=== PATIENT | female | born 1940 | race Caucasian/White ===

== ENCOUNTER 2024-09-15 18:15 | Inpatient (IN) | payer MEDICARE, BC ==
[~2024-09-15] VITALS: Ht 157.5 cm; Wt 68.0 kg
[2024-09-15 18:49] LABS: PLATELET COUNT (AUTO) 446 K/uL (179-408); RED BLOOD CELL COUNT(AUTO) 4.57 MIL/uL (3.63-4.92); RED CELL DISTRIBUTION WIDTH 14.5 % (12.3-17.7); WHITE BLOOD COUNT (AUTO) 9.0 K/uL (3.8-11.8)
[2024-09-15] MEDS ORDERED: CEFTRIAXONE /D5W 50ML IVPB **ER PYXIS IV ONE (18:49)
[2024-09-15] MEDS: IV NORMAL SALINE 1000 ML BAG IV ONE (18:50)
[2024-09-15] MEDS: CEFTRIAXONE 1 G in IV DEXTROSE 5% 50 ML IV ONE (18:50)
[2024-09-15 19:14] LABS: ASPARTATE AMINOTRANSFERASE 50 U/L (15-37); CREATININE 1.0 mg/dL (0.6-1.3); NT-PRO BNP 469 pg/mL (0-125); SODIUM SERUM 137 mmol/L (136-145); TOTAL PROTEIN, SERUM 6.8 g/dL (6.4-8.2); UREA NITROGEN, BLOOD 20 mg/dL (7-18)
[2024-09-15] MEDS ORDERED: VANCOMYCIN IV 200 ML ONE (19:32)
[2024-09-15] MEDS: VANCOMYCIN IV 1,000 MG in IV DEXTROSE 5% 250 ML IV ONE (19:42)
[2024-09-15] MEDS: POTASSIUM CHLORIDE 50 ML IV SCH (19:55)
[2024-09-15] MEDS: POTASSIUM CHLORIDE 20 MEQ TAB.PRT.SR PO ONE (19:55)
[2024-09-15 20:44] LABS: *BILIRUBIN,URIN NEGATIVE (NEGATIVE); *CLARITY,URINE CLEAR (CLEAR); *COLOR,URINE YELLOW (YELLOW); *KETONES,URINE NEGATIVE (NEGATIVE); *PROTEIN,URINE NEGATIVE (NEGATIVE); *UROBILINOGEN,URINE 0.2 E.U./dl (NORMAL); LEUKOCYTE ESTERASE ,URINE TRACE (NEGATIVE); NITRITE, URINE NEGATIVE (NEGATIVE); UGLUCOSE NEGATIVE (NEGATIVE)
[2024-09-15 20:45] LABS: *BLOOD, URINE TRACE (NEGATIVE)
[2024-09-15 21:05] LABS: SQUAMOUS EPITHELIAL CELL,UR FEW /HPF (NONE SEEN)
[2024-09-15] MEDS ORDERED: LEVO300T2 PO (21:54)
[2024-09-15] MEDS ORDERED: ESCI10TA PO (21:54)
[2024-09-15] MEDS ORDERED: AMLO10TA59 PO (21:54)
[2024-09-15] MEDS ORDERED: ATOR20TA PO (21:54)
[2024-09-15] MEDS ORDERED: ONDANSETRON 4 MG/2 ML VIAL IV PRN (23:30)
[2024-09-15] MEDS ORDERED: ENALAPRILAT DIHYDRATE 1.25 MG/1 ML VIAL IV PRN (23:30)
[2024-09-15] MEDS ORDERED: TEMAZEPAM 15 MG CAPSULE PO PRN (23:30)
[2024-09-16 05:09] VITALS: BP 135/78; TEMP 98.2; O2SAT 95
[2024-09-16 07:22] LABS: PLATELET COUNT (AUTO) 371 K/uL (179-408); RED BLOOD CELL COUNT(AUTO) 4.12 MIL/uL (3.63-4.92); RED CELL DISTRIBUTION WIDTH 14.7 % (12.3-17.7); WHITE BLOOD COUNT (AUTO) 10.1 K/uL (3.8-11.8)
[2024-09-16 07:33] VITALS: BP 142/82; TEMP 97.5; O2SAT 97
[2024-09-16 08:07] LABS: ASPARTATE AMINOTRANSFERASE 39 U/L (15-37); CREATININE 0.8 mg/dL (0.6-1.3); SODIUM SERUM 138 mmol/L (136-145); TOTAL PROTEIN, SERUM 6.1 g/dL (6.4-8.2); UREA NITROGEN, BLOOD 15 mg/dL (7-18)
[2024-09-16] MEDS: PANTOPRAZOLE SODIUM 40 MG VIAL IV SCH (08:41)
[2024-09-16] MEDS: ESCITALOPRAM OXALATE 10 MG TABLET PO SCH (08:45)
[2024-09-16] MEDS: AMLODIPINE 10 MG TABLET PO SCH (08:45)
[2024-09-16] MEDS ORDERED: LEVOTHYROXINE SODIUM PO SCH (09:00)
[2024-09-16] MEDS ORDERED: TEMAZEPAM 7.5 MG CAPSULE PO PRN (11:00)
[2024-09-16] MEDS ORDERED: LEVO75TA7 PO (11:03)
[2024-09-16] MEDS: POTASSIUM CHLORIDE 20 MEQ TAB.PRT.SR PO ONE (11:11)
[2024-09-16] MEDS: MAGNESIUM OXIDE 400 MG TABLET PO ONE (11:12)
[2024-09-16] MEDS: POTASSIUM CHLORIDE 50 ML IV SCH (11:24)
[2024-09-16 11:40] VITALS: BP 142/87; TEMP 97.7; O2SAT 95
[2024-09-16 15:10] VITALS: BP 150/87; TEMP 97.4; O2SAT 95
[2024-09-16] MEDS: NEUTRA PHOS PACKET PO ONE (16:28)
[2024-09-16] MEDS: CEFTRIAXONE 1 G in IV DEXTROSE 5% 50 ML IV SCH (17:42)
[2024-09-16] MEDS: CALCIUM CARBONATE 500 MG TAB.CHEW PO PRN (18:30)
[2024-09-16] MEDS: ACETAMINOPHEN 325 MG TABLET PO PRN (18:30)
[2024-09-16] MEDS: TRIAMCINOLONE ACET 0.1% CREAM 15 GM TUBE TOP SCH (18:31)
[2024-09-16 19:00] VITALS: BP 131/81; TEMP 98.5; O2SAT 96
[2024-09-16] MEDS: ATORVASTATIN 20 MG TABLET PO SCH (20:33)
[2024-09-16] MEDS: DOCUSATE SODIUM 100 MG CAPSULE PO SCH (20:34)
[2024-09-16] MEDS ORDERED: DOCUSATE SODIUM 250 MG CAPSULE PO SCH (21:00)
[2024-09-17] VITALS: BP 155/77; TEMP 98.1; O2SAT 95
[2024-09-17 04:00] VITALS: BP 155/77; TEMP 98.5; O2SAT 94
[2024-09-17] MEDS: LEVOTHYROXINE SODIUM 75 MCG TABLET PO SCH (06:17)
[2024-09-17 06:54] LABS: PLATELET COUNT (AUTO) 389 K/uL (179-408); RED BLOOD CELL COUNT(AUTO) 4.01 MIL/uL (3.63-4.92); RED CELL DISTRIBUTION WIDTH 14.5 % (12.3-17.7); WHITE BLOOD COUNT (AUTO) 14.3 K/uL (3.8-11.8)
[2024-09-17 07:16] LABS: CREATININE 0.9 mg/dL (0.6-1.3); SODIUM SERUM 138 mmol/L (136-145); UREA NITROGEN, BLOOD 16 mg/dL (7-18)
[2024-09-17 07:45] VITALS: BP 145/72; TEMP 97.9; O2SAT 96
[2024-09-17 11:34] VITALS: BP 143/72; TEMP 97.8; O2SAT 95
[2024-09-17] MEDS: MAGNESIUM OXIDE 400 MG TABLET PO ONE (14:47)
[2024-09-17 15:54] VITALS: BP 140/89; TEMP 98.2; O2SAT 96
[2024-09-17] MEDS: IV NS 1000 ML 1,000 ML IV PRN (16:19)
[2024-09-17] MEDS: CLOTRIMAZOLE 1% CREAM 30 GM TUBE TOP SCH (16:30)
[2024-09-17 19:00] VITALS: BP 123/61; TEMP 97.7; O2SAT 96
[2024-09-18] VITALS (7 sets, daily range): BP systolic 124–159; BP diastolic 57–79; TEMP 97.7–98.7; O2SAT 94–96
[2024-09-18] MEDS: PANTOPRAZOLE SODIUM 40 MG TABLET.DR PO SCH (06:37)
[2024-09-18 09:30] LABS: PLATELET COUNT (AUTO) 289 K/uL (179-408); RED BLOOD CELL COUNT(AUTO) 3.79 MIL/uL (3.63-4.92); RED CELL DISTRIBUTION WIDTH 14.5 % (12.3-17.7); WHITE BLOOD COUNT (AUTO) 10.0 K/uL (3.8-11.8)
[2024-09-18 09:42] LABS: CREATININE 0.9 mg/dL (0.6-1.3); SODIUM SERUM 138 mmol/L (136-145); UREA NITROGEN, BLOOD 19 mg/dL (7-18)
[2024-09-18] MEDS: NEUTRA PHOS PACKET PO ONE (13:08)
[2024-09-18] MEDS: MAGNESIUM OXIDE 400 MG TABLET PO ONE (17:25)
[2024-09-18] MEDS: REMEDY ESSENTIAL ZINC PASTE 113 GM TOP PRN (17:33)
[2024-09-19 00:16] VITALS: BP 137/71; TEMP 97.6; O2SAT 94
[2024-09-19 05:53] VITALS: BP 128/79; TEMP 97.8; O2SAT 95
[2024-09-19 07:03] LABS: PLATELET COUNT (AUTO) 279 K/uL (179-408); RED BLOOD CELL COUNT(AUTO) 3.74 MIL/uL (3.63-4.92); RED CELL DISTRIBUTION WIDTH 14.2 % (12.3-17.7); WHITE BLOOD COUNT (AUTO) 7.2 K/uL (3.8-11.8)
[2024-09-19 07:21] LABS: CREATININE 0.6 mg/dL (0.6-1.3); SODIUM SERUM 138 mmol/L (136-145); UREA NITROGEN, BLOOD 15 mg/dL (7-18)
[2024-09-19 07:31] VITALS: BP 122/71; TEMP 97.6; O2SAT 98
[2024-09-19] MEDS: MAGNESIUM OXIDE 400 MG TABLET PO ONE (11:07)
[2024-09-19 11:31] VITALS: BP 151/66; TEMP 97.8; O2SAT 96
[2024-09-19 15:48] VITALS: BP 138/69; TEMP 98.9; O2SAT 95
[2024-09-19] MEDS: NEUTRA PHOS PACKET PO ONE (16:37)
[2024-09-19] MEDS: ENSURE ENLIVE (VAN) 240 ML LIQUID PO SCH (17:20)
[2024-09-19 19:20] VITALS: BP 149/76; TEMP 98.1; O2SAT 95
[2024-09-20 04:00] VITALS: BP 129/72; TEMP 98; O2SAT 98
[2024-09-20 07:14] LABS: CREATININE 0.6 mg/dL (0.6-1.3); SODIUM SERUM 138 mmol/L (136-145); UREA NITROGEN, BLOOD 10 mg/dL (7-18)
[2024-09-20] MEDS ORDERED: POTASSIUM CHLORIDE 20 MEQ TAB.PRT.SR PO ONE (11:00)
[2024-09-20] MEDS: POTASSIUM CHLORIDE 20 MEQ POWDER PACKET PO ONE (11:26)
[2024-09-20 11:27] VITALS: BP 141/59; TEMP 98.6; O2SAT 96
[2024-09-20 16:10] VITALS: BP 123/68; TEMP 98.3; O2SAT 96
[2024-09-20 19:50] VITALS: BP 154/79; TEMP 98.2; O2SAT 96
[2024-09-21 04:54] VITALS: BP 119/83; TEMP 97.7; O2SAT 97
[2024-09-21 11:18] VITALS: BP 165/84; TEMP 98.8; O2SAT 96
[2024-09-21 14:18] LABS: PLATELET COUNT (AUTO) 394 K/uL (179-408); RED BLOOD CELL COUNT(AUTO) 4.04 MIL/uL (3.63-4.92); RED CELL DISTRIBUTION WIDTH 14.4 % (12.3-17.7); WHITE BLOOD COUNT (AUTO) 7.7 K/uL (3.8-11.8)
[2024-09-21 14:23] LABS: CREATININE 0.6 mg/dL (0.6-1.3); SODIUM SERUM 140 mmol/L (136-145); UREA NITROGEN, BLOOD 7 mg/dL (7-18)
[2024-09-21 15:40] VITALS: BP 128/77; TEMP 98.3; O2SAT 95
[2024-09-21 19:00] VITALS: BP 133/74; TEMP 98.7; O2SAT 96
[2024-09-21] MEDS: POTASSIUM CHLORIDE 10 MEQ TAB.PRT.SR PO SCH (20:08)
[2024-09-21] MEDS: CALCIUM CARBONATE 500 MG TAB.CHEW PO ONE (23:37)
[2024-09-22 04:00] VITALS: BP 141/79; TEMP 98; O2SAT 97
[2024-09-22] MEDS: POTASSIUM CHLORIDE 10 MEQ TAB.PRT.SR PO ONE (10:16)
[2024-09-22 10:35] VITALS: BP 129/57; TEMP 97.7; O2SAT 96
[2024-09-22] MEDS: HEPARIN SODIUM,PORCINE 5,000 UNITS/ML VIAL SQ SCH (11:47)
[2024-09-22 15:07] LABS: METHYLMALONIC ACID 183.0 nmol/L (0-378)
[2024-09-22 15:40] VITALS: BP 143/73; TEMP 99.3; O2SAT 96
[2024-09-22 20:52] VITALS: BP 146/77; TEMP 98.5; O2SAT 95
[2024-09-23 05:55] VITALS: BP 149/84; TEMP 98.9; O2SAT 96
[2024-09-23] MEDS ORDERED: POTASSIUM CHLORIDE 50 ML IV SCH (09:30)
[2024-09-23] MEDS ORDERED: DOCU-141 PO (09:45)
[2024-09-23] MEDS ORDERED: ONDA4VIA23 IV (09:45)
[2024-09-23] MEDS ORDERED: HEPA50007 SQ (09:45)
[2024-09-23] MEDS ORDERED: ENAL1.2515 IV (09:45)
[2024-09-23] MEDS ORDERED: NORM50IV2 IV (09:45)
[2024-09-23] MEDS ORDERED: ACET325T53 PO (09:45)
[2024-09-23] MEDS ORDERED: CLOT30CR24 TOP (09:45)
[2024-09-23] MEDS ORDERED: LEVO75TA7 PO (09:45)
[2024-09-23] MEDS ORDERED: Lactose-Free Food PO (09:45)
[2024-09-23] MEDS ORDERED: MENT113O TOP (09:45)
[2024-09-23] MEDS ORDERED: PANT40TA49 PO (09:45)
[2024-09-23] MEDS ORDERED: CALC500T63 PO (09:45)
[2024-09-23 09:50] LABS: PLATELET COUNT (AUTO) 372 K/uL (179-408); RED BLOOD CELL COUNT(AUTO) 3.93 MIL/uL (3.63-4.92); RED CELL DISTRIBUTION WIDTH 14.4 % (12.3-17.7); WHITE BLOOD COUNT (AUTO) 7.2 K/uL (3.8-11.8)
[2024-09-23 10:08] LABS: CREATININE 0.6 mg/dL (0.6-1.3); SODIUM SERUM 140 mmol/L (136-145); UREA NITROGEN, BLOOD 7 mg/dL (7-18)
[2024-09-23] MEDS: MAGNESIUM OXIDE 400 MG TABLET PO ONE (11:17)
[2024-09-23] MEDS: NEUTRA PHOS PACKET PO ONE (11:17)
[2024-09-23 11:35] VITALS: BP 158/67; TEMP 98; O2SAT 95
[2024-09-23 16:05] VITALS: BP 139/45; TEMP 98.9; O2SAT 97
== END 2024-09-23 19:25 | disposition short-term general hospital (02) | DRG 551 ==
LOC: ER 18:15 → TELE3 22:30 → MEDSURG3 09-19 09:59
PROVIDERS: ADMIT Internal Medicine; ATTEND Nurse Practitioner Acute Care
PROC: 05HA33Z Insertion of Infusion Device into Left Brachial Vein, Percutaneous Approach (ICD-10-PCS; principal; 2024-09-16)
PROC: 05HF33Z Insertion of Infusion Device into Left Cephalic Vein, Percutaneous Approach (ICD-10-PCS; 2024-09-20)
DX: M51.06 Intervertebral disc disorders with myelopathy, lumbar region (principal); E43 Unspecified severe protein-calorie malnutrition; G93.41 Metabolic encephalopathy; G83.4 Cauda equina syndrome; N39.0 Urinary tract infection, site not specified; I67.82 Cerebral ischemia; Q85.9 Phakomatosis, unspecified; F03.918 Unspecified dementia, unspecified severity, with other behavioral disturbance; F03.93 Unspecified dementia, unspecified severity, with mood disturbance; G90.89 Other disorders of autonomic nervous system; R62.7 Adult failure to thrive; E87.6 Hypokalemia; R29.6 Repeated falls; M48.061 Spinal stenosis, lumbar region without neurogenic claudication; D25.9 Leiomyoma of uterus, unspecified; Z90.89 Acquired absence of other organs; Z98.890 Other specified postprocedural states; E03.9 Hypothyroidism, unspecified; K59.09 Other constipation; E78.5 Hyperlipidemia, unspecified; R26.2 Difficulty in walking, not elsewhere classified; M25.78 Osteophyte, vertebrae; M48.02 Spinal stenosis, cervical region; L89.326 Pressure-induced deep tissue damage of left buttock; L89.316 Pressure-induced deep tissue damage of right buttock; E83.42 Hypomagnesemia; I10 Essential (primary) hypertension; Q76.49 Other congenital malformations of spine, not associated with scoliosis; F32.A Depression, unspecified; K80.20 Calculus of gallbladder without cholecystitis without obstruction; E88.09 Other disorders of plasma-protein metabolism, not elsewhere classified; E86.0 Dehydration; E83.52 Hypercalcemia; Z79.890 Hormone replacement therapy; Z79.899 Other long term (current) drug therapy; F41.9 Anxiety disorder, unspecified; Z68.27 Body mass index [BMI] 27.0-27.9, adult
CPT/HCPCS: 36415; 70450; 70551; 71045; 72141; 72148; 83605; 83735; 83921; 83970; 84100; 84443; 84484; 85025; 85730; 87040; 87086; 93307; A4606; A4663; A6213; C1758; G0378; J0696; J1644; J2470; J3370; J3480; J7040

== ENCOUNTER 2024-09-27 09:24 | Inpatient (IN) | payer MEDICARE, BC ==
[~2024-09-27] VITALS: Ht 167.6 cm; Wt 70.8 kg
[~2024-09-27 09:24] MED LIST: ACET325T53 PO; AMLO10TA59 PO; ATOR20TA PO; CALC500T63 PO; CLOT30CR24 TOP; DOCU-141 PO; ENAL1.2515 IV; ESCI10TA PO; HEPA50007 SQ; LEVO75TA7 PO; Lactose-Free Food PO; MENT113O TOP; NORM50IV2 IV; ONDA4VIA23 IV; PANT40TA49 PO
[2024-09-27 10:37] VITALS: BP 126/60; TEMP 97.5
[2024-09-27 11:27] VITALS: BP 126/60; TEMP 97.5
[2024-09-27] MEDS ORDERED: MAG30ORA2 PO (19:38)
[2024-09-27] MEDS ORDERED: MAG355OR44 PO (19:38)
[2024-09-27] MEDS ORDERED: MAGN400O6 PO (19:38)
[2024-09-27] MEDS ORDERED: MORP4VIA IJ (19:38)
[2024-09-27] MEDS ORDERED: HYDR-4209 PO (19:38)
[2024-09-27 20:00] VITALS: BP 132/60; TEMP 98.7; O2SAT 98
[2024-09-27] MEDS ORDERED: CALCIUM CARBONATE 500 MG TAB.CHEW PO PRN (23:00)
[2024-09-27] MEDS ORDERED: CALMOSEPTINE 113 GM OINTMENT TOP PRN (23:00)
[2024-09-28 05:30] VITALS: BP 151/77; TEMP 98.9; O2SAT 98
[2024-09-28] MEDS: LEVOTHYROXINE SODIUM 75 MCG TABLET PO SCH (06:14)
[2024-09-28] MEDS: PANTOPRAZOLE SODIUM 40 MG TABLET.DR PO SCH (06:14)
[2024-09-28 07:49] VITALS: BP 164/79; TEMP 98; O2SAT 100
[2024-09-28 07:53] LABS: PLATELET COUNT (AUTO) 350 K/uL (179-408); RED BLOOD CELL COUNT(AUTO) 3.29 MIL/uL (3.63-4.92); RED CELL DISTRIBUTION WIDTH 14.4 % (12.3-17.7); WHITE BLOOD COUNT (AUTO) 8.3 K/uL (3.8-11.8)
[2024-09-28 08:32] LABS: ASPARTATE AMINOTRANSFERASE 26 U/L (15-37); CREATININE 0.7 mg/dL (0.6-1.3); SODIUM SERUM 138 mmol/L (136-145); TOTAL PROTEIN, SERUM 5.4 g/dL (6.4-8.2); UREA NITROGEN, BLOOD 6 mg/dL (7-18)
[2024-09-28] MEDS: ESCITALOPRAM OXALATE 10 MG TABLET PO SCH (09:00)
[2024-09-28] MEDS: AMLODIPINE 10 MG TABLET PO SCH (09:01)
[2024-09-28] MEDS: HYDROCODONE/APAP 5-325MG TABLET PO PRN (09:02)
[2024-09-28] MEDS: CLOTRIMAZOLE 1% CREAM 30 GM TUBE TOP SCH (09:04)
[2024-09-28] MEDS: MAGNESIUM OXIDE 400 MG TABLET PO ONE (10:53)
[2024-09-28] MEDS: POTASSIUM CHLORIDE 20 MEQ POWDER PACKET PO ONE (11:10)
[2024-09-28] MEDS: NEUTRA PHOS PACKET PO ONE (12:20)
[2024-09-28] MEDS: NUTRISOURCE FIBER 4 GM PACKET PO SCH (12:25)
[2024-09-28] MEDS: ENSURE ENLIVE (VAN) 240 ML LIQUID PO SCH (12:27)
[2024-09-28 13:39] VITALS: O2SAT 96
[2024-09-28] MEDS ORDERED: MIRALAX 17 GM POWD.PACK PO PRN (14:00)
[2024-09-28 16:03] VITALS: BP 137/66; TEMP 98.3; O2SAT 98
[2024-09-28 20:11] VITALS: BP 131/84; TEMP 98.4; O2SAT 99
[2024-09-28] MEDS: ATORVASTATIN 10 MG TABLET PO SCH (20:35)
[2024-09-28] MEDS: SENNOSIDES 1 TABLET PO SCH (20:35)
[2024-09-28] MEDS: DOCUSATE SODIUM 100 MG CAPSULE PO SCH (20:35)
[2024-09-28] MEDS ORDERED: ATORVASTATIN 20 MG TABLET PO SCH (21:00)
[2024-09-29 06:45] VITALS: BP 150/71; TEMP 97.9; O2SAT 98
[2024-09-29 08:00] VITALS: BP 153/81; TEMP 98.1; O2SAT 99
[2024-09-29] MEDS: SENNOSIDES 1 TABLET PO SCH (08:02)
[2024-09-29 18:06] VITALS: BP 136/61; TEMP 97.1; O2SAT 96
[2024-09-29 19:59] VITALS: BP 142/50; TEMP 98.4; O2SAT 96
[2024-09-29] MEDS: MIRTAZAPINE 15 MG TABLET PO SCH (20:17)
[2024-09-29 22:14] VITALS: O2SAT 97
[2024-09-30 05:58] VITALS: BP 139/54; TEMP 98.6; O2SAT 96
[2024-09-30] MEDS: MAGNESIUM HYDROXIDE 30 ML LIQUID UDC PO PRN (06:37)
[2024-09-30 08:00] VITALS: BP 148/67; TEMP 99.6; O2SAT 95
[2024-09-30 10:30] VITALS: TEMP 98.7; O2SAT 98
[2024-09-30 16:00] VITALS: BP 158/77; TEMP 98.5; O2SAT 98
[2024-09-30 20:00] VITALS: BP 147/63; TEMP 98.7; O2SAT 97
[2024-09-30 21:54] VITALS: O2SAT 98
[2024-10-01 06:00] VITALS: BP 144/71; TEMP 98; O2SAT 98
[2024-10-01] MEDS: LISINOPRIL 5 MG TABLET PO SCH (09:00)
[2024-10-01 09:22] VITALS: BP 130/51; TEMP 97.8; O2SAT 98
[2024-10-01 14:35] VITALS: O2SAT 98
[2024-10-01 15:23] VITALS: BP 103/48; TEMP 98.2; O2SAT 97
[2024-10-01 20:00] VITALS: BP 129/67; TEMP 97.9; O2SAT 96
[2024-10-01] MEDS: ACETAMINOPHEN 325 MG TABLET PO PRN (20:11)
[2024-10-02 00:16] VITALS: O2SAT 98
[2024-10-02 05:35] VITALS: BP 127/54; TEMP 98; O2SAT 98
[2024-10-02 10:30] VITALS: O2SAT 97
[2024-10-02] MEDS: SHARK LIVER OIL/PETROLAT OINT 60 GM TUBE RC PRN (12:11)
[2024-10-02 13:45] VITALS: BP 119/48; TEMP 97.7; O2SAT 95
[2024-10-02 16:02] VITALS: BP 133/59; TEMP 98.3; O2SAT 97
[2024-10-03] VITALS (7 sets, daily range): BP systolic 101–157; BP diastolic 44–69; TEMP 97.8–99.3; O2SAT 96–97
[2024-10-03] MEDS: MUPIROCIN 2% OINT 22 GM TUBE TP SCH (12:27)
[2024-10-03] MEDS ORDERED: NYSTATIN POWDER 15 GM BOTTLE TOP SCH ×2 (13:00→21:00)
[2024-10-03] MEDS: NYSTATIN CREAM 30 GM TUBE TOP SCH (20:55)
[2024-10-04 08:00] VITALS: BP 120/54; TEMP 98.5; O2SAT 98
[2024-10-04] MEDS: SENNOSIDES 1 TABLET PO PRN (12:35)
[2024-10-04 15:26] VITALS: O2SAT 98
[2024-10-04 16:00] VITALS: BP 122/55; TEMP 97.5; O2SAT 98
[2024-10-04 19:55] VITALS: BP 126/50; TEMP 97.5; O2SAT 96
[2024-10-04 20:48] VITALS: O2SAT 96
[2024-10-05 06:44] VITALS: BP 124/59; TEMP 97.6; O2SAT 95
[2024-10-05 08:00] VITALS: BP 142/71; TEMP 97.9; O2SAT 98
[2024-10-05] MEDS ORDERED: SIMETHICONE 40 MG/0.6 ML, 30ML BOTTLE PO PRN (09:30)
[2024-10-05] MEDS ORDERED: SIMETHICONE 80 MG TAB.CHEW PO PRN (09:45)
[2024-10-05] MEDS: FLEET ENEMA 133 ML BOTTLE RC ONE ×2 (11:00→14:54)
[2024-10-05 16:00] VITALS: BP 122/67; TEMP 97.6; O2SAT 99
[2024-10-05 20:12] VITALS: BP 145/61; TEMP 99.7; O2SAT 99
[2024-10-06 03:12] VITALS: O2SAT 96
[2024-10-06 06:44] VITALS: BP 129/60; TEMP 98.9; O2SAT 95
[2024-10-06 08:06] LABS: *BILIRUBIN,URIN NEGATIVE (NEGATIVE); *BLOOD, URINE 2+ (NEGATIVE); *CLARITY,URINE TURBID (CLEAR); *COLOR,URINE YELLOW (YELLOW); *KETONES,URINE NEGATIVE (NEGATIVE); *PROTEIN,URINE 2+ (NEGATIVE); *UROBILINOGEN,URINE 1.0 E.U./dl (NORMAL); LEUKOCYTE ESTERASE ,URINE 3+ (NEGATIVE); NITRITE, URINE NEGATIVE (NEGATIVE); UGLUCOSE NEGATIVE (NEGATIVE)
[2024-10-06 08:22] VITALS: BP 151/63; TEMP 98.9; O2SAT 98
[2024-10-06 08:32] LABS: SQUAMOUS EPITHELIAL CELL,UR MODERATE /HPF (NONE SEEN)
[2024-10-06 16:00] VITALS: BP 125/56; TEMP 98.1; O2SAT 98
[2024-10-06 16:35] VITALS: O2SAT 98
[2024-10-06] MEDS: CIPROFLOXACIN HCL 250 MG TABLET PO SCH (21:00)
[2024-10-06 21:21] VITALS: BP 142/79; TEMP 100.3; O2SAT 98
[2024-10-06] MEDS ORDERED: ONDANSETRON ODT 4 MG TAB.RAPDIS SL PRN (22:30)
[2024-10-06] MEDS: IV NS 1000 ML 1,000 ML IV PRN (22:55)
[2024-10-07] MEDS ORDERED: PIPERACILLIN/TAZOBACTAM/D5W 50 ML IV ONE (02:23)
[2024-10-07] MEDS: PIPERACILLIN SODIUM/TAZOBACTAM 3.375 G in IV DEXTROSE 5% 50 ML IV ONE (02:30)
[2024-10-07 05:04] VITALS: O2SAT 98
[2024-10-07 07:55] VITALS: BP 112/57; TEMP 97.8; O2SAT 98
[2024-10-07 10:56] LABS: PLATELET COUNT (AUTO) 397 K/uL (179-408); RED BLOOD CELL COUNT(AUTO) 3.39 MIL/uL (3.63-4.92); RED CELL DISTRIBUTION WIDTH 14.4 % (12.3-17.7); WHITE BLOOD COUNT (AUTO) 23.5 K/uL (3.8-11.8)
[2024-10-07 11:37] LABS: CREATININE 1.5 mg/dL (0.6-1.3); SODIUM SERUM 139 mmol/L (136-145); UREA NITROGEN, BLOOD 26 mg/dL (7-18)
[2024-10-07] MEDS: POTASSIUM CHLORIDE 20 MEQ TAB.PRT.SR PO ONE (13:10)
[2024-10-07] MEDS: PIPERACILLIN SODIUM/TAZOBACTAM 3.375 G in IV DEXTROSE 5% 50 ML IV SCH (13:14)
[2024-10-07] MEDS ORDERED: PIPERACILLIN SODIUM/TAZOBACTAM 3.375 G in IV DEXTROSE 5% 100 ML IV SCH (14:00)
[2024-10-07 16:00] VITALS: BP 100/48; TEMP 97.6; O2SAT 98
[2024-10-07 17:05] VITALS: O2SAT 98
[2024-10-07 21:09] VITALS: BP 106/43; TEMP 97.5; O2SAT 98
[2024-10-08 05:26] VITALS: BP 120/54; TEMP 98.5; O2SAT 98
[2024-10-08 08:05] VITALS: BP 106/47; TEMP 97.6; O2SAT 91
[2024-10-08 08:42] LABS: CREATININE 1.6 mg/dL (0.6-1.3); SODIUM SERUM 141 mmol/L (136-145); UREA NITROGEN, BLOOD 33 mg/dL (7-18)
[2024-10-08] MEDS: REMEDY ESSENTIAL ZINC PASTE 113 GM TOP PRN (09:25)
[2024-10-08] MEDS ORDERED: POTASSIUM CHLORIDE 20 MEQ POWDER PACKET PO ONE (10:30)
[2024-10-08] MEDS: POTASSIUM CHLORIDE 10 MEQ TAB.PRT.SR PO ONE (11:18)
[2024-10-08] MEDS: MEROPENEM 500 MG in IV NORMAL SALINE 50 ML IV SCH (13:36)
[2024-10-08] MEDS ORDERED: MEROPENEM 500 MG in IV NORMAL SALINE 50 ML IV SCH (14:00)
[2024-10-08] MEDS: MEGESTROL ACETATE 400 MG/10 ML LIQUID UDC PO SCH (14:45)
[2024-10-08 16:04] VITALS: BP 102/48; TEMP 97.5; O2SAT 99
[2024-10-08 20:14] VITALS: BP 112/49; TEMP 97.6; O2SAT 97
[2024-10-09 06:55] VITALS: BP 131/50; TEMP 97.7; O2SAT 98
[2024-10-09 07:45] LABS: CREATININE 1.3 mg/dL (0.6-1.3); SODIUM SERUM 142 mmol/L (136-145); UREA NITROGEN, BLOOD 27 mg/dL (7-18)
[2024-10-09 08:54] VITALS: BP 130/48; TEMP 98.2; O2SAT 97
[2024-10-09 16:12] VITALS: BP 111/49; TEMP 97.7; O2SAT 100
[2024-10-09 20:19] VITALS: BP 129/52; TEMP 98.4; O2SAT 99
[2024-10-10 06:08] LABS: PLATELET COUNT (AUTO) 405 K/uL (179-408); RED BLOOD CELL COUNT(AUTO) 3.67 MIL/uL (3.63-4.92); RED CELL DISTRIBUTION WIDTH 14.2 % (12.3-17.7); WHITE BLOOD COUNT (AUTO) 8.5 K/uL (3.8-11.8)
[2024-10-10 06:48] VITALS: BP 139/62; TEMP 98.5; O2SAT 98
[2024-10-10 08:00] VITALS: BP 153/75; TEMP 97.8; O2SAT 99
[2024-10-10 16:28] VITALS: BP 165/78; TEMP 97.5; O2SAT 97
[2024-10-10 19:42] VITALS: BP 153/62; TEMP 98.6; O2SAT 98
[2024-10-11 06:33] VITALS: BP 138/66; TEMP 97.8; O2SAT 96
[2024-10-11 07:46] LABS: PLATELET COUNT (AUTO) 402 K/uL (179-408); RED BLOOD CELL COUNT(AUTO) 3.43 MIL/uL (3.63-4.92); RED CELL DISTRIBUTION WIDTH 14.3 % (12.3-17.7); WHITE BLOOD COUNT (AUTO) 6.8 K/uL (3.8-11.8)
[2024-10-11 08:02] VITALS: BP 156/68; TEMP 97.4; O2SAT 97
[2024-10-11 08:02] LABS: ASPARTATE AMINOTRANSFERASE 20 U/L (15-37); CREATININE 0.7 mg/dL (0.6-1.3); SODIUM SERUM 136 mmol/L (136-145); TOTAL PROTEIN, SERUM 5.6 g/dL (6.4-8.2); UREA NITROGEN, BLOOD 11 mg/dL (7-18)
[2024-10-11] MEDS ORDERED: MAGNESIUM OXIDE 400 MG TABLET PO ONE (13:00)
[2024-10-11] MEDS: ALBUMIN HUMAN 25% 100 ML IV ONE (13:22)
[2024-10-11] MEDS: POTASSIUM CHLORIDE 20 MEQ TAB.PRT.SR PO ONE (14:40)
[2024-10-11] MEDS: FUROSEMIDE 20 MG/2 ML VIAL IV ONE (14:49)
[2024-10-11] MEDS: MAGNESIUM SULFATE/D5W 100 ML IV SCH (15:53)
[2024-10-11 16:24] VITALS: BP 112/50; TEMP 97.7; O2SAT 97
[2024-10-11] MEDS: POTASSIUM CHLORIDE 20 MEQ in IV D5 1/2 NS 1000 ML 1,000 ML IV PRN (19:34)
[2024-10-12 05:48] VITALS: BP 128/70; TEMP 97.8; O2SAT 97
[2024-10-12 06:22] VITALS: BP 152/74; O2SAT 99
[2024-10-12 07:31] VITALS: BP 141/76; TEMP 98; O2SAT 97
[2024-10-12 09:04] LABS: CREATININE 1.0 mg/dL (0.6-1.3); SODIUM SERUM 137 mmol/L (136-145); UREA NITROGEN, BLOOD 8 mg/dL (7-18)
[2024-10-12 09:07] VITALS: BP 141/76
[2024-10-12] MEDS ORDERED: ATOR10TA PO (14:33)
[2024-10-12] MEDS ORDERED: ACET325C7 PO (14:35)
[2024-10-12] MEDS ORDERED: HYDR-3972 PO (14:35)
[2024-10-12] MEDS ORDERED: LISI-782 PO (14:36)
[2024-10-12] MEDS ORDERED: MEGE400O5 PO (14:38)
[2024-10-12] MEDS ORDERED: MERO500V23 IV (14:39)
[2024-10-12] MEDS ORDERED: NYST15CR TP (14:40)
[2024-10-12] MEDS ORDERED: ONDA4TAB11 SL (14:41)
[2024-10-12] MEDS ORDERED: PANT40TA2 PO (14:42)
[2024-10-12] MEDS ORDERED: POLY250017 PO (14:43)
[2024-10-12] MEDS ORDERED: SENN-18 PO (14:45)
[2024-10-12] MEDS ORDERED: SIME80TA15 PO (14:45)
[2024-10-12] MEDS ORDERED: PHEN28OI9 RC (14:45)
[2024-10-12] MEDS ORDERED: GUAR1PAC4 PO (14:46)
[2024-10-12] MEDS ORDERED: PETR113P TP (14:47)
[2024-10-16] MEDS ORDERED: MAGN400T30 GT (13:10)
[2024-10-16] MEDS ORDERED: ACET-2154 GT (13:10)
[2024-10-16] MEDS ORDERED: ACID1TAB4 GT (13:10)
[2024-10-16] MEDS ORDERED: PANT40SU2 GT (13:10)
[2024-10-16] MEDS ORDERED: Neomy/Bacitrac/Polymi Oint TOP (13:10)
[2024-10-16] MEDS ORDERED: PROT30LI GT (13:10)
[2024-10-16] MEDS ORDERED: ENOX40DI SQ (13:10)
[2024-10-16] MEDS ORDERED: NYST15CR TP (13:10)
[2024-10-16] MEDS ORDERED: LACT-209 GT (13:10)
[2024-10-16] MEDS ORDERED: AMLO5TAB4 GT (13:10)
[2024-10-16] MEDS ORDERED: CRAN450T9 GT (13:11)
[2024-10-16] MEDS ORDERED: ESCI10TA GT (13:11)
[2024-10-16] MEDS ORDERED: SENN8.6T19 GT (13:11)
[2024-10-16] MEDS ORDERED: BISA10SU61 RC (13:11)
[2024-10-16] MEDS ORDERED: ALBU2.5V7 NEB (13:11)
[2024-10-16] MEDS ORDERED: LISI-782 GT (13:11)
[2024-10-16] MEDS ORDERED: HYDR-4209 GT (13:11)
[2024-10-16] MEDS ORDERED: MULT9LIQ6 GT (13:11)
[2024-10-16] MEDS ORDERED: LEVO25TA9 GT (13:11)
== END 2024-10-12 11:56 | disposition short-term general hospital (02) | DRG 551 ==
PROVIDERS: ADMIT Physical Medicine & Rehabilitation Pain Medicine; ATTEND Physical Medicine & Rehabilitation Pain Medicine
PROC: 05HF33Z Insertion of Infusion Device into Left Cephalic Vein, Percutaneous Approach (ICD-10-PCS; principal; 2024-10-11)
DX: M48.061 Spinal stenosis, lumbar region without neurogenic claudication (principal); G92.8 Other toxic encephalopathy; N17.0 Acute kidney failure with tubular necrosis; G83.4 Cauda equina syndrome; N39.0 Urinary tract infection, site not specified; D68.59 Other primary thrombophilia; F03.93 Unspecified dementia, unspecified severity, with mood disturbance; E46 Unspecified protein-calorie malnutrition; E03.9 Hypothyroidism, unspecified; E21.3 Hyperparathyroidism, unspecified; E78.5 Hyperlipidemia, unspecified; I10 Essential (primary) hypertension; B96.20 Unspecified Escherichia coli [E. coli] as the cause of diseases classified elsewhere; R62.7 Adult failure to thrive; D25.9 Leiomyoma of uterus, unspecified; E66.9 Obesity, unspecified; Z68.25 Body mass index [BMI] 25.0-25.9, adult; E86.0 Dehydration; E87.6 Hypokalemia; E88.09 Other disorders of plasma-protein metabolism, not elsewhere classified; F32.A Depression, unspecified; K56.41 Fecal impaction; K64.9 Unspecified hemorrhoids; L30.4 Erythema intertrigo; K80.20 Calculus of gallbladder without cholecystitis without obstruction; S01.80XA Unspecified open wound of other part of head, initial encounter; S30.0XXA Contusion of lower back and pelvis, initial encounter; W18.30XA Fall on same level, unspecified, initial encounter; X58.XXXA Exposure to other specified factors, initial encounter; Y93.9 Activity, unspecified; Z87.440 Personal history of urinary (tract) infections; Y92.9 Unspecified place or not applicable; Z79.899 Other long term (current) drug therapy; Z88.8 Allergy status to other drugs, medicaments and biological substances
CPT/HCPCS: 36415; 71045; 74018; 83735; 84100; 84443; 85025; 87077; 87086; 97535-GO-CO; A4663; A9150; J1938; J2185; J2543; J3475; J3480; J7040; J8999; P9047; Q0162

== ENCOUNTER 2024-10-12 12:28 | Inpatient (IN) | payer MEDICARE, BC ==
[~2024-10-12] VITALS: Ht 160 cm; Wt 65.8 kg
[~2024-10-12 12:28] MED LIST changes: +HYDR-4209 PO; +MAG30ORA2 PO; +MAG355OR44 PO; +MAGN400O6 PO; +MORP4VIA IJ
[2024-10-12 12:30] VITALS: BP 121/51; TEMP 97.2; O2SAT 97
[2024-10-12 13:15] VITALS: O2SAT 97
[2024-10-12] MEDS ORDERED: ATOR10TA PO (14:33)
[2024-10-12] MEDS ORDERED: ACET325C7 PO (14:35)
[2024-10-12] MEDS ORDERED: HYDR-3972 PO (14:35)
[2024-10-12] MEDS ORDERED: LISI-782 PO (14:36)
[2024-10-12] MEDS ORDERED: MEGE400O5 PO (14:38)
[2024-10-12] MEDS ORDERED: MERO500V23 IV (14:39)
[2024-10-12] MEDS ORDERED: NYST15CR TP (14:40)
[2024-10-12] MEDS ORDERED: ONDA4TAB11 SL (14:41)
[2024-10-12] MEDS ORDERED: PANT40TA2 PO (14:42)
[2024-10-12] MEDS ORDERED: POLY250017 PO (14:43)
[2024-10-12] MEDS ORDERED: PHEN28OI9 RC (14:45)
[2024-10-12] MEDS ORDERED: SIME80TA15 PO (14:45)
[2024-10-12] MEDS ORDERED: SENN-18 PO (14:45)
[2024-10-12] MEDS ORDERED: GUAR1PAC4 PO (14:46)
[2024-10-12] MEDS ORDERED: PETR113P TP (14:47)
[2024-10-12 16:00] VITALS: BP 127/76; TEMP 97.6; O2SAT 97
[2024-10-12] MEDS ORDERED: ENOXAPARIN SODIUM 30 MG/0.3 ML DISP.SYRIN SUBCUT SCH (17:30)
[2024-10-12] MEDS ORDERED: ALBUTEROL SULFATE 2.5 MG/3 ML NEBU NEB PRN (17:30)
[2024-10-12] MEDS ORDERED: ACETAMINOPHEN 650 MG SUPP.RECT RC PRN (17:30)
[2024-10-12] MEDS ORDERED: ONDANSETRON 4 MG/2 ML VIAL IV PRN (17:30)
[2024-10-12] MEDS: MEROPENEM 500 MG in IV NORMAL SALINE 50 ML IV SCH (17:38)
[2024-10-12] MEDS: ENOXAPARIN SODIUM 40 MG/0.4 ML DISP.SYRIN SQ SCH (17:44)
[2024-10-12] MEDS: POTASSIUM CHLORIDE 20 MEQ in IV D5/ 0.9% NACL 1,000 ML IV PRN (17:48)
[2024-10-12 19:00] VITALS: BP 144/67; TEMP 97.7; O2SAT 100
[2024-10-12] MEDS: ACETAMINOPHEN 500 MG TABLET PO PRN (19:03)
[2024-10-12] MEDS ORDERED: MEROPENEM 500 MG VIAL IV SCH (21:00)
[2024-10-12 22:05] VITALS: O2SAT 97
[2024-10-12] MEDS: NYSTATIN CREAM 30 GM TUBE TP SCH (22:12)
[2024-10-13] MEDS: PANTOPRAZOLE SODIUM 40 MG VIAL IV SCH (09:00)
[2024-10-13 10:49] VITALS: BP 152/77; TEMP 97.7; O2SAT 100
[2024-10-13 11:05] VITALS: O2SAT 98
[2024-10-13 15:49] VITALS: BP 163/64; TEMP 98; O2SAT 100
[2024-10-13] MEDS: AMLODIPINE 5 MG TABLET GT SCH (16:32)
[2024-10-13 19:33] VITALS: BP 138/61; TEMP 98.2; O2SAT 99
[2024-10-13 20:46] VITALS: O2SAT 98
[2024-10-14 05:53] VITALS: BP 150/57; TEMP 97.5; O2SAT 93
[2024-10-14 07:19] LABS: ASPARTATE AMINOTRANSFERASE 27 U/L (15-37); CREATININE 0.8 mg/dL (0.6-1.3); SODIUM SERUM 138 mmol/L (136-145); TOTAL PROTEIN, SERUM 5.6 g/dL (6.4-8.2); UREA NITROGEN, BLOOD 7 mg/dL (7-18)
[2024-10-14 07:25] LABS: IRON, SERUM 40 ug/dL (50-175)
[2024-10-14 07:27] LABS: PLATELET COUNT (AUTO) 408 K/uL (179-408); RED BLOOD CELL COUNT(AUTO) 3.70 MIL/uL (3.63-4.92); RED CELL DISTRIBUTION WIDTH 14.3 % (12.3-17.7); WHITE BLOOD COUNT (AUTO) 6.6 K/uL (3.8-11.8)
[2024-10-14 12:09] VITALS: BP 120/57; TEMP 98; O2SAT 100
[2024-10-14] MEDS: NEUTRA PHOS PACKET PO ONE (12:19)
[2024-10-14] MEDS: POTASSIUM CHLORIDE 20 MEQ TAB.PRT.SR PO ONE (12:19)
[2024-10-14] MEDS: JEVITY 1.2 1000 ML LIQUID GT PRN (14:00)
[2024-10-14 14:26] VITALS: BP 139/61; TEMP 98.1; O2SAT 99
[2024-10-14 19:18] VITALS: BP 135/65; TEMP 97.8; O2SAT 97
[2024-10-14 21:00] VITALS: O2SAT 98
[2024-10-15 05:26] VITALS: BP 150/73; TEMP 98.5; O2SAT 99
[2024-10-15] MEDS: PANTOPRAZOLE ORAL SUSPENSION 40 MG SUSPDR.PKT GT SCH (06:20)
[2024-10-15] MEDS ORDERED: PANTOPRAZOLE SODIUM 40 MG TABLET.DR PO SCH (07:00)
[2024-10-15 11:00] VITALS: BP 130/72; TEMP 98.2; O2SAT 98
[2024-10-15 12:15] VITALS: O2SAT 98
[2024-10-15] MEDS: NEOMY/BACITRAC/POLYMI OINT 28.35 GM TUBE TOP SCH (13:43)
[2024-10-15 15:12] VITALS: BP 132/59; TEMP 97.4; O2SAT 94
[2024-10-15 19:35] VITALS: BP 142/71; TEMP 99; O2SAT 100
[2024-10-16 04:50] VITALS: O2SAT 98
[2024-10-16 05:45] VITALS: BP 146/78; TEMP 98.8; O2SAT 99
[2024-10-16 06:41] LABS: PLATELET COUNT (AUTO) 384 K/uL (179-408); RED BLOOD CELL COUNT(AUTO) 3.31 MIL/uL (3.63-4.92); RED CELL DISTRIBUTION WIDTH 14.4 % (12.3-17.7); WHITE BLOOD COUNT (AUTO) 7.1 K/uL (3.8-11.8)
[2024-10-16 07:04] LABS: ASPARTATE AMINOTRANSFERASE 27 U/L (15-37); CREATININE 0.8 mg/dL (0.6-1.3); SODIUM SERUM 139 mmol/L (136-145); TOTAL PROTEIN, SERUM 5.4 g/dL (6.4-8.2); UREA NITROGEN, BLOOD 14 mg/dL (7-18)
[2024-10-16 08:46] LABS: BAND % (MANUAL) 1 % (0-10); EOSINOPHILS % (MANUAL) 3 % (0-8); LYMPHOCYTES % (MANUAL) 30 % (20-40); METAMYELOCYTES % 1 % (0-1); MONOCYTES % (MANUAL) 10 % (2-10); NEUTROPHILS % (MANUAL) 55 % (42-75); PLATELET ESTIMATE ADEQUATE
[2024-10-16 11:17] VITALS: BP 156/75; TEMP 99; O2SAT 99
[2024-10-16] MEDS: MAGNESIUM OXIDE 400 MG TABLET GT ONE (11:21)
[2024-10-16] MEDS: NEUTRA PHOS PACKET PO ONE (11:22)
[2024-10-16] MEDS: PROTEIN SUPPLEMENT (PROSTAT) 30 ML LIQUID GT SCH (12:46)
[2024-10-16] MEDS ORDERED: ACID1TAB4 GT (13:10)
[2024-10-16] MEDS ORDERED: AMLO5TAB4 GT (13:10)
[2024-10-16] MEDS ORDERED: LACT-209 GT (13:10)
[2024-10-16] MEDS ORDERED: PROT30LI GT (13:10)
[2024-10-16] MEDS ORDERED: MAGN400T30 GT (13:10)
[2024-10-16] MEDS ORDERED: ACET-2154 GT (13:10)
[2024-10-16] MEDS ORDERED: NYST15CR TP (13:10)
[2024-10-16] MEDS ORDERED: PANT40SU2 GT (13:10)
[2024-10-16] MEDS ORDERED: Neomy/Bacitrac/Polymi Oint TOP (13:10)
[2024-10-16] MEDS ORDERED: ENOX40DI SQ (13:10)
[2024-10-16] MEDS ORDERED: CRAN450T9 GT (13:11)
[2024-10-16] MEDS ORDERED: ALBU2.5V7 NEB (13:11)
[2024-10-16] MEDS ORDERED: HYDR-4209 GT (13:11)
[2024-10-16] MEDS ORDERED: BISA10SU61 RC (13:11)
[2024-10-16] MEDS ORDERED: SENN8.6T19 GT (13:11)
[2024-10-16] MEDS ORDERED: LISI-782 GT (13:11)
[2024-10-16] MEDS ORDERED: MULT9LIQ6 GT (13:11)
[2024-10-16] MEDS ORDERED: LEVO25TA9 GT (13:11)
[2024-10-16] MEDS ORDERED: ESCI10TA GT (13:11)
[2024-10-16 15:37] VITALS: BP 126/2; TEMP 99.2; O2SAT 96
[2024-10-16] MEDS ORDERED: MAGNESIUM OXIDE 400 MG TABLET GT SCH (21:00)
== END 2024-10-16 17:05 | DRG 640 ==
LOC: MEDSURG3 12:28
PROVIDERS: ADMIT Internal Medicine; ATTEND Internal Medicine
PROC: 0DH63UZ Insertion of Feeding Device into Stomach, Percutaneous Approach (ICD-10-PCS; principal; 2024-10-13 09:00)
PROC: 3E0G76Z Introduction of Nutritional Substance into Upper GI, Via Natural or Artificial Opening (ICD-10-PCS; 2024-10-14)
DX: E43 Unspecified severe protein-calorie malnutrition (principal); G92.8 Other toxic encephalopathy; N17.0 Acute kidney failure with tubular necrosis; D68.59 Other primary thrombophilia; F03.93 Unspecified dementia, unspecified severity, with mood disturbance; N39.0 Urinary tract infection, site not specified; Z16.12 Extended spectrum beta lactamase (ESBL) resistance; E78.5 Hyperlipidemia, unspecified; K80.20 Calculus of gallbladder without cholecystitis without obstruction; E03.9 Hypothyroidism, unspecified; Z74.09 Other reduced mobility; M51.360 Other intervertebral disc degeneration, lumbar region with discogenic back pain only; M48.061 Spinal stenosis, lumbar region without neurogenic claudication; D25.9 Leiomyoma of uterus, unspecified; R62.7 Adult failure to thrive; E89.2 Postprocedural hypoparathyroidism; K29.70 Gastritis, unspecified, without bleeding; K56.41 Fecal impaction; Z87.440 Personal history of urinary (tract) infections; R13.10 Dysphagia, unspecified; F32.A Depression, unspecified; I11.9 Hypertensive heart disease without heart failure; B96.20 Unspecified Escherichia coli [E. coli] as the cause of diseases classified elsewhere; Z98.890 Other specified postprocedural states; E87.8 Other disorders of electrolyte and fluid balance, not elsewhere classified
CPT/HCPCS: 36415; 70030-TC; 82378; 83550; 83735; 83921; 84100; 84443; 85025; 93005; 94760; A6213; A9150; G0378; J1650; J2185; J2470; J3480; J7042